=== PATIENT | male | born 1955 | race African-American/Black ===

== ENCOUNTER 2016-09-20 02:50 | Emergency (ER) | payer OTHER ==
[~2016-09-20] VITALS: Ht 177.8 cm; Wt 99.2 kg
[~2016-09-20 02:50] MED LIST: ASPIRIN EC325 MG PO; MILK OF MAGN PO; NORCO 5/3251 TABLET PO; ZOFRAN ODT4 MG PO
[2016-09-20] MEDS ORDERED: TRAMADOL HCL50 MG PO (05:21)
[2016-09-20 06:05] VITALS: BP 134/66
== END 2016-09-20 06:07 | disposition home or self-care (01) ==
LOC: EME 02:50
DX: K43.9 Ventral hernia without obstruction or gangrene (principal); Z87.891 Personal history of nicotine dependence
CPT/HCPCS: 99281; 99284

== ENCOUNTER 2018-02-10 14:04 | Emergency (ER) | payer OTHER ==
[~2018-02-10] VITALS: Ht 177.8 cm; Wt 98.2 kg
[~2018-02-10 14:04] MED LIST changes: +TRAMADOL HCL50 MG PO
[2018-02-10 14:07] VITALS: BP 158/99
[2018-02-10] MEDS ORDERED: MOTRIN600 MG PO (15:27)
== END 2018-02-10 15:48 | disposition home or self-care (01) ==
LOC: EME 14:04
DX: S40.012A Contusion of left shoulder, initial encounter (principal); V49.40XA Driver injured in collision with unspecified motor vehicles in traffic accident, initial encounter; Y92.410 Unspecified street and highway as the place of occurrence of the external cause
CPT/HCPCS: 73030; 99281; 99283